=== PATIENT | male | born 1965 | race Caucasian/White ===

== ENCOUNTER 2017-07-16 18:23 | Emergency (ER) | payer MEDICAID ==
[2017-07-16 18:28] VITALS: RESP 18
--- NOTE | 2017-07-16 18:46 | EDPHY ---
H & P Stated Complaint: ETOH W/D HPI/ROS: CHIEF COMPLAINT: Alcohol withdrawal HISTORY OF PRESENT ILLNESS: This patient is a 52 year old male presenting for medical evaluation of alcohol withdrawal prior to [facility]. He [facility] to [facility] to enroll in their 5 day program, but staff suggested he present to the emergency department to obtain a prescription for Librium prior to beginning the recovery program. He generally drinks a pint of vodka each day, beginning in the afternoon. He used to drink mainly beer and wine, but switched to hard liquor in the last year and has begun to experience delirium tremens when he attempts to stop. He notes he feels funny at work or walking down stairs and gets shaky, which he finds embarrassing. He states he wants to quit drinking, and his last drink was yesterday. He was able to stop for 15 days two years ago. He denies headaches, chills, diaphoresis, or abdominal pain. No recent illness or history of seizures. REVIEW OF SYSTEMS: A ten point review of systems was performed and is negative with the exception of the items mentioned in the HPI. Past medical history: Alcohol abuse. Past surgical history: Surgical debridement of leg infection. Family history: Unknown. Social history: Former at bedside. Works in construction. Nonsmoker. No marijuana use. No illicit drug use. General Appearance: Alert. Vital signs reviewed. Blood pressure 145/111. Heart rate 95. Eyes: Pupils equal and round, no conjunctival injection, no discharge. Anicteric. ENT, Mouth: Mucous membranes are moist, no oropharyngeal erythema or edema. Neck: No lymphadenopathy, supple. Respiratory: Lungs are clear to auscultation; no wheezes, rales, or rhonchi. Cardiovascular: Regular rate and rhythm; no murmur, rub, or gallop. Gastrointestinal: Abdomen is soft and nontender, no masses or organomegaly, bowel sounds normal. Skin: Warm and dry, no rashes on exposed skin, normal color. Back: Nontender to palpation over the thoracolumbar spine. No CVAT. Extremities: No lower extremity edema, no calf tenderness or swelling. Neurological: Alert and oriented. Moving all four extremities easily and equally. Psychiatric: Normal affect. - Personal History Current Tetanus Diphtheria and Acellular Pertussis (TDAP): Yes - Medical/Surgical History Hx Asthma: No Hx Chronic Respiratory Disease: No Hx Diabetes: No Hx Cardiac Disease: No Hx Renal Disease: No Hx Cirrhosis: No Hx Alcoholism: No Hx HIV/AIDS: No Hx Splenectomy or Spleen Trauma: No Other PMH: ETOH ABUSE - Social History Smoking Status: Former smoker Constitutional: Initial Vital Signs Temperature (C) 36.8 C 07/16/17 18:25 Heart Rate 95 07/16/17 18:25 Respiratory Rate 18 07/16/17 18:25 Blood Pressure 145/111 H 07/16/17 18:25 O2 Sat (%) 96 07/16/17 18:25 O2 Delivery Mode Room Air Allergies/Adverse Reactions: No Known Allergies Allergy (Unverified 06/17/16 16:15) Home Medications: Medication Instructions Recorded NK [No Known Home Meds] 07/16/17 Medical Decision Making ED Course/Re-evaluation: He is medically cleared [facility] a [facility] and given Librium. He is slightly hypertensive with a heart rate of 95 here. He seems motivated to participate in recovery. I think that he is likely beginning the withdrawal process. He does not have a known history of hypertension. Differential Diagnosis: I considered a differential diagnosis that includes but is not limited to alcohol abuse, current alcohol intoxication, beginning of alcohol withdrawal, benign essential tremor, and drug-seeking. - Data Points Medications Given: Discontinued Medications Chlordiazepoxide (Librium 25 Mg Prepack#6) 1 btl TAKEHOME EDNOW ONE Stop: 07/16/17 19:03 Last Admin: 07/16/17 19:12 Dose: 1 btl Departure - Departure Disposition: Home, Routine, Self-Care Clinical Impression: Alcohol withdrawal Qualifiers: Complication of substance-induced condition: uncomplicated Qualified Code(s): F10.230 - Alcohol dependence with withdrawal, uncomplicated Condition: Good Instructions: Alcohol Withdrawal (ED) Additional Instructions: Go directly to the [facility] as planned with your prescription. Referrals: NONE *PRIMARY CARE P,. [Primary Care Provider] - As per Instructions [facility] Detox 24 Hours [Outside] - As per Instructions Report Scribed for: Wendy Harmon Report Scribed by: Karlie Cazares Date of Report: 07/16/17 Time of Report: 19:01 Physician Review and Approval Statement: 07/16/17 18:46 Portions of this note were transcribed by the medical education manager. I, Dr. Wendy Harmon, personally performed the history, physical exam, and medical decision- making; and confirmed the accuracy of the information in the transcribed note.
[2017-07-16] MEDS ORDERED: CHLORDIAZEPOXIDE 25MG PREPK#6 BTL TAKEHOME ONE (19:02)
[2017-07-16 19:14] VITALS: BP 153/119; PULSE 99; TEMP 98.4; O2SAT 91
== END 2017-07-16 19:14 | disposition home or self-care (01) ==
DX: F10.230 Alcohol dependence with withdrawal, uncomplicated (principal); Z87.891 Personal history of nicotine dependence

== ENCOUNTER 2018-05-13 17:45 | Emergency (ER) | payer MEDICAID ==
[2018-05-13] MEDS ORDERED: LORazepam 1 MG TAB PO ONE ×2 (18:15→19:29)
[2018-05-13] MEDS ORDERED: CHLORDIAZEPOXIDE 25MG PREPK#6 BTL TAKEHOME ONE (18:15)
--- NOTE | 2018-05-13 18:20 | EDPHY ---
H & P Stated Complaint: withdrawl from ETOH at [facility] Time Seen by Provider: 05/13/18 18:11 - Personal History Current Tetanus/Diphtheria Vaccine: Unsure Current Tetanus Diphtheria and Acellular Pertussis (TDAP): Unsure - Medical/Surgical History Hx Asthma: No Hx Chronic Respiratory Disease: No Hx Diabetes: No Hx Cardiac Disease: No Hx Renal Disease: No Hx Cirrhosis: No Hx Alcoholism: Yes Hx HIV/AIDS: No Hx Splenectomy or Spleen Trauma: No Other PMH: ETOH ABUSE - Social History Smoking Status: Former smoker Constitutional: Initial Vital Signs Temperature (C) 36.8 C 05/13/18 17:47 Heart Rate 99 05/13/18 17:47 Respiratory Rate 16 05/13/18 17:47 Blood Pressure 151/99 H 05/13/18 17:47 O2 Sat (%) 92 05/13/18 17:47 O2 Delivery Mode Room Air Allergies/Adverse Reactions: No Known Allergies Allergy (Unverified 06/17/16 16:15) Home Medications: Medication Instructions Recorded NK [No Known Home Meds] 07/16/17 Medical Decision Making ED Course/Re-evaluation: CHIEF COMPLAINT: Alcohol intoxication. HISTORY OF PRESENT ILLNESS: The patient is a chronic alcoholic living on the [address]. Patient drinks on a daily basis and obtains whatever alcohol is available. Patient had his last drink yesterday. [facility] but he was having withdrawal symptoms which included shakes. He has no evidence of hallucinations. He has never had a in alcohol withdrawal seizure. They did not have any medicine there to treat him and consequently sent here for evaluation and to receive medicine to treat him on the CIWA scale. REVIEW OF SYSTEMS: A 10 point review of systems was performed and is negative with the exception of the elements mentioned in the history of present illness. PHYSICAL EXAM: General Appearance: Shaky, Alert, well hydrated, appropriate, and non-toxic appearing. Head: Atraumatic without scalp tenderness or obvious injury Eyes: Pupils equal, round, reactive to light and accommodation, EOMI, no trauma , no injection. Ears: Clear bilaterally, no perforation, normal landmarks Nose: Atraumatic, no rhinorrhea, clear. Throat: There is no erythema or exudates, no lesions, normal tonsils, mucus membranes moist. Neck: Supple, 2+ carotid upstroke, nontender, no lymphadenopathy. Respiratory: No retractions, no distress, no wheezes, and no accessory muscle use. Lungs are clear to auscultation bilaterally. Cardiovascular: Regular rate and rhythm, no murmurs, rubs, or gallops. Bilateral carotid, radial, dorsalis pedis, and posterior tibial pulses intact. Good capillary refill all extremities. Gastrointestinal: Abdomen is soft, nontender, non-distended, no masses, no rebound, no guarding, no peritoneal signs. Musculoskeletal: Normal active ROM of all extremities, atraumatic. Neurological: Alert, appropriate, and interactive. The patient has normal DTRs and non-focal cranial nerves, motor, sensory, and cerebellar exam. Skin: No rashes, good turgor, no nodules on palpation. PAST MEDICAL HISTORY: Alcohol abuse PAST SURGICAL HISTORY: Noncontributory SOCIAL HISTORY: Single, unemployed, abuses drugs and alcohol, chronic alcoholic DIAGNOSTICS/PROCEDURES/CRITICAL CARE TIME: None necessary DIFFERENTIAL DIAGNOSIS: For shakes includes but is not limited to: Alcohol withdrawal, polysubstance withdrawal, neurologic deficits, chronic cerebellar deficits MEDICAL DECISION MAKING: I serially examined this patient since the patient's arrival here in the emergency department. The patient continues to become less shaky with peaks examination after 2 mg of Ativan. I will [facility] with appropriate doses of Librium. He has no evidence of delirium tremens. I serially questioned the patient and the patient's story given initially has not changed. The patient still denies any trauma, any head injury, and any illicit drug use. At this point, the patient is walking the department freely and is clinically sober. We're discharging the patient to the [facility] in stable condition. Departure - Departure Disposition: Home, Routine, Self-Care Clinical Impression: Alcohol withdrawal Qualifiers: Complication of substance-induced condition: uncomplicated Qualified Code(s): F10.230 - Alcohol dependence with withdrawal, uncomplicated Condition: Good Instructions: Alcohol Withdrawal (ED) Referrals: NONE *PRIMARY CARE P,. [Primary Care Provider] - As per Instructions
[2018-05-13 18:57] VITALS: BP 138/94
== END 2018-05-13 19:36 | disposition home or self-care (01) ==
DX: F10.230 Alcohol dependence with withdrawal, uncomplicated (principal); Z87.891 Personal history of nicotine dependence

== ENCOUNTER 2019-04-30 16:24 | Emergency (ER) | payer MEDICAID | END 2019-04-30 18:20 | disposition home or self-care (01) ==